=== PATIENT | female | born 1970 | race American Indian/Alaskan Native ===

== ENCOUNTER 2019-07-09 19:34 | Emergency (ER) | payer SELFPAY ==
--- NOTE | 2019-07-09 20:10 | Emergency Department Report ---
Blank Doc - Documentation Documentation: 49-year-old female that presents with right sided facial swelling and periorbi ermias swelling. This initial assessment/diagnostic orders/clinical plan/treatment(s) is/are subject to change based on patient's health status, clinical progression and re- assessment by fellow clinical providers in the ED. Further treatment and workup at subsequent clinical providers discretion. Patient/guardians urged not to elope from the ED as their condition may be serious if not clinically assessed and managed. Initial orders include: 1- Patient sent to [facility] for further evaluation and treatment
[2019-07-09 20:11] VITALS: BP 154/94
[2019-07-09] MEDS ORDERED: dexAMETHasone 4 MG/ML VIAL IM ONE (21:50)
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
== END 2019-07-09 23:30 | disposition home or self-care (01) ==
LOC: ED 19:34
DX: T78.40XA Allergy, unspecified, initial encounter (principal); L03.211 Cellulitis of face; H66.91 Otitis media, unspecified, right ear; X58.XXXA Exposure to other specified factors, initial encounter
CPT/HCPCS: 96372; 99282; J1100

== ENCOUNTER 2019-09-28 11:44 | Emergency (ER) | payer SELFPAY ==
[2019-09-28 12:00] VITALS: BP 153/81
--- NOTE | 2019-09-28 13:20 | Emergency Department Report ---
Chief Complaint: Skin Rash Stated Complaint: SKIN FLARE UP Time Seen by Provider: 09/28/19 13:15 - HPI History of Present Illness: pt is a 49-year-old female who presents for ezcema and psoriasis that began being irritated a few days ago. she states she used to use triamcinolone cream. She denies any fever, vomiting, chills. She states that it just feels very itchy. She has an allergy to penicillin. Vitals are stable On exam she has multiple areas of hyperpigmentation and lichenified skin, no erythema, no skin denuding, no necrosis, no signs of infection, no blistering Patient is presenting with eczema and psoriasis She has no signs of infection, no signs of emergent skin condition, no constitutional symptoms, no signs of allergic reaction advised pt please use a hydrocortisone cream. please use an emollient. please take benadryl as needed for itching but can cause drowsiness so do not drive or operate heavy machinery while taking. may take pepcid during the day. return to the emergency room for any new or worsening symptoms. Patient referred to the appropriate resources and discussed the importance of follow-up Discussed strict return precautions with patient Medical screening examination performed and there is no threat to life or limb at this time - Exam Vital Signs: Vital Signs 09/28/19 11:59 Temperature 98.2 F Pulse Rate 102 H Respiratory 20 Rate Blood Pressure 153/81 O2 Sat by Pulse 99 Oximetry MSE screening note: Focused history and physical exam performed. ED Disposition for MSE Clinical Impression: Psoriasis Eczema Qualifiers: Eczema type: unspecified Qualified Code(s): L30.9 - Dermatitis, unspecified Disposition: MED SCREENING EXAM-LEFT Condition: Stable Instructions: Eczema (ED), Psoriasis (ED) Additional Instructions: please use a hydrocortisone cream. please use an emollient. please take benadryl as needed for itching but can cause drowsiness so do not drive or operate heavy machinery while taking. may take pepcid during the day. return to the emergency room for any new or worsening symptoms. Referrals: JAMES BLANCA MD [Staff Physician] - 3-5 Days [facility] [Provider Group] - 3-5 Days [facility] [Outside] - 3-5 Days [facility] [Outside] - 3-5 Days JITENDRA MEEKS MD [Staff Physician] - 3-5 Days Time of Disposition: 13:20 Print Language: UGAND[place]
== END 2019-09-28 13:25 | disposition left against medical advice (07) ==
LOC: ED 11:44
DX: L98.9 Disorder of the skin and subcutaneous tissue, unspecified (principal); Z53.21 Procedure and treatment not carried out due to patient leaving prior to being seen by health care provider